=== PATIENT | male | born 1975 | race Caucasian/White ===

== ENCOUNTER 2016-11-30 05:32 | Outpatient (CLI) | payer OTHER ==
[~2016-11-30] VITALS: Ht 180.3 cm; Wt 90.7 kg
[2016-11-30] MEDS ORDERED: MULT-35 PO (15:35)
== END 2016-11-30 15:39 ==
LOC: PREOP 05:32
PROVIDERS: ATTEND Surgery
DX: Z01.818 Encounter for other preprocedural examination (principal); Z12.11 Encounter for screening for malignant neoplasm of colon

== ENCOUNTER 2016-12-07 06:50 | Day surgery (SDC) | payer OTHER ==
[~2016-12-07] VITALS: Ht 180.3 cm; Wt 90.7 kg
[~2016-12-07 06:50] MED LIST: MULT-35 PO
[2016-12-07] MEDS ORDERED: NS IV 1000 ML 1,000 ML IV STA (07:06)
[2016-12-07 07:18] VITALS: BP 119/88
[2016-12-07] MEDS ORDERED: MIDAZOLAM 2 MG/2 ML (VERSED) VIAL ONE (07:23)
[2016-12-07] MEDS ORDERED: proPOfol 200 MG/20 ML (DIPRIVAN) VIAL IV ONE (07:23)
[2016-12-07 08:12] VITALS: BP 103/82
--- NOTE | 2016-12-07 08:15 | Discharge Inst-Simple/Standard ---
Discharge Inst-Standard Patient Instructions/Follow Up Plan of Care/Instructions/FU: 2 weeks [place] Activity as Tolerated: Yes Discharge Diet: Regular Diet EMILIANO TORRES DO Dec 07, 2016 8:15 am
--- NOTE | 2016-12-07 08:15 | Progress Note-Post Operative ---
Post-Operative Progess Note Surgeon (s)/Processes Chemical Design Engineer (s) Surgeon EMILIANO TORRES DO Processes Chemical Design Engineer: 0 Pre-Operative Diagnosis family history colon cancer, history of polyps Post-Operative Diagnosis rectal polyp, rectal mucosal change Post-Op Procedure Note Date of Procedure: Dec 07, 2016 Name of Procedure Performed: colonoscopy with hot bx rectum and hot bx polypectomy rectum Description of the Procedure: see note Findings of the Procedure see note Anesthesia Type per mda Estimated blood loss (mL): none Specimen(s) collected/removed rectal mucosa, rectal polyp EMILIANO TORRES DO Dec 07, 2016 8:15 am
[2016-12-07 08:32] VITALS: BP 112/84
[2016-12-07 08:50] VITALS: BP 112/84
--- NOTE | 2016-12-07 09:19 | OPERATIVE REPORT ---
DATE OF SERVICE: 12/07/2016 PREOPERATIVE DIAGNOSES: 1. Family history of colon cancer. 2. History of colon polyps. POSTOPERATIVE DIAGNOSIS: 1. Mucosal changes in the rectum. 2. Rectal polyp. PROCEDURE PERFORMED: Colonoscopy with hot biopsy rectum and hot biopsy polypectomy rectum. SURGEON: Reji Conrad DO ANESTHESIA: Per MECHANICAL EQUIPMENT TEST ENGINEER ESTIMATED BLOOD LOSS: None. COMPLICATIONS: None. INDICATION: The patient is a 41-year-old male with family history of colon cancer and history of colon polyps himself. He understands the risks and benefits of the procedure and wished to proceed with the procedure. Consent was signed on the chart. DESCRIPTION OF PROCEDURE: The patient was taken to the endoscopy suite and placed in the left lateral recumbent position. Time-out was performed. Digital rectal examination was performed. There was no palpable pulse, mass, ulcerations. Scope was inserted in the rectum and advanced all the way to the cecum with minimal difficulty. Prep was adequate. Scope was then slowly retracted back. There was no pulse, masses or ulcerations in the cecum, ascending, transverse, descending and sigmoid colon. In the rectum there is slight mucosal change which appears to be maybe from previous polypectomy. Hot biopsy of these mucosal changes was obtained. There was also a small polyp in the rectum which hot biopsy polypectomy was performed. The scope was also retroflexed noting no further pathology. Scope was returned to its normal position, slowly withdrawn until completely removed. The patient tolerated the procedure well without any complications and was taken to the recovery room in stable condition. RECOMMENDATIONS: The patient will need repeat colonoscopy in 5 years. He will follow up in the office in 2 weeks to discuss pathology results. If he has any problems prior to that, he should be reevaluated at that time. If he has any problems prior to the 5 year edin for repeat colonoscopy, he should be reevaluated for repeat colonoscopy. Job ID: [id number] DocumentID: [id number] Dictated Date: 12/07/2016 08:21:44 Cnc Maintenance Technician Date: 12/07/2016 09:18:42 Dictated By: DO JOSE MARTINS
== END 2016-12-07 08:50 | disposition home or self-care (01) ==
LOC: ENDO 06:50
PROVIDERS: ATTEND Surgery
DX: Z12.11 Encounter for screening for malignant neoplasm of colon (principal); K62.1 Rectal polyp; Z80.0 Family history of malignant neoplasm of digestive organs
CPT/HCPCS: 88305